=== PATIENT | female | born 1970 | race African-American/Black ===

== ENCOUNTER 2024-01-05 13:48 | Emergency (ER) | payer BC, OTHER ==
[2024-01-05 14:02] VITALS: RESP 18; TEMP 98.2; BMI 38.0
[2024-01-05] MEDS ORDERED: ACETAMINOPHEN INJECTION 100 ML IVPB ONE (14:28)
[2024-01-05 14:54] LABS: BASO % 0.5 % (0-2.0); EOS % 2.1 % (0-4.5); HEMATOCRIT 33.9 % (32.4-45.2); HEMOGLOBIN 11.3 GM/dL (10.7-15.3); MCH 27.3 pg (25.7-33.7); MCHC 33.2 g/dl (32.0-36.0); MEAN CELL VOLUME 82.1 fl (80-96); MEAN PLT VOLUME 7.3 fl (7.5-11.1); MONO % 5.5 % (3.8-10.2); NEUT % 70.9 % (42.8-82.8); PLATELET COUNT 364 10^3/uL (134-434); RBC 4.13 M/mm3 (3.60-5.2); RDW 17.1 % (11.6-15.6); WHITE BLOOD COUNT 6.5 K/mm3 (4.0-10.0)
[2024-01-05] MEDS: ACETAMINOPHEN 1000 MG/100 ML BAG IVPB ONE (14:58)
[2024-01-05] MEDS: SODIUM CHLORIDE 0.9% 500 ML INFUS.BAG IV ONE (14:58)
[2024-01-05 15:45] LABS: POTASSIUM 3.9 mmol/L (3.5-5.1)
[2024-01-05 15:51] LABS: BLOOD UREA NITROGEN 15.9 mg/dL (7-18); CALCIUM 9.3 mg/dL (8.5-10.1)
[2024-01-05 15:52] LABS: ALBUMIN 3.3 g/dl (3.4-5.0); MAGNESIUM 1.6 mg/dL (1.8-2.4)
[2024-01-05 15:55] LABS: BILIRUBIN,TOTAL 0.3 mg/dL (0.2-1); CREATININE 1.3 mg/dL (0.55-1.3); TOT PROT 7.5 g/dl (6.4-8.2)
[2024-01-05 17:02] VITALS: BP 113/78; PULSE 90
== END 2024-01-05 18:07 | disposition home or self-care (01) ==
LOC: JER 13:48
PROC: 3E033NZ Introduction of Analgesics, Hypnotics, Sedatives into Peripheral Vein, Percutaneous Approach (ICD-10-PCS; principal; 2024-01-05)
DX: R20.0 Anesthesia of skin (principal); R20.2 Paresthesia of skin; R00.0 Tachycardia, unspecified; Z20.822 Contact with and (suspected) exposure to COVID-19
CPT/HCPCS: 0241U-QW; 36415; 71046-TC-FY; 80053; 82977; 83615; 83735; 84484; 84703; 85025; 93005; 93010; 99285-25; J0131